=== PATIENT | female | born 1940 | race Caucasian/White ===

== ENCOUNTER → 2016-07-14 | Outpatient (CLI) | payer OTHER | LOC: MMPC 09:00 | PROVIDERS: ATTEND Obstetrics & Gynecology | DX: N95.2 Postmenopausal atrophic vaginitis (principal); N81.6 Rectocele; R10.2 Pelvic and perineal pain | CPT/HCPCS: 99204; G0463 ==

== ENCOUNTER → 2016-07-16 | Outpatient (CLI) | payer OTHER ==
--- NOTE | 2016-07-16 21:09 | DI ---
US PELVIC COMPLETE (NON OB),07/16/2016 1:58 PM: Clinical History: Pelvic pressure Previous Exam: None at this facility. Findings: Multiple transabdominal grayscale and color Doppler sonographic images are obtained through the pelvi s demonstrating a normal-appearing uterus measuring 7.2 x 1.6 x 3.3 cm. The endometrium was not well seen. The right ovary measured 1.8 x 1.2 x 2.0 cm and the left ovary measured 2.2 x 1.3 x 1.7 cm. Impression: Grossly normal pelvic sonogram.
== END ==
LOC: US 13:54
PROVIDERS: ATTEND Obstetrics & Gynecology
DX: R10.2 Pelvic and perineal pain (principal); N94.89 Other specified conditions associated with female genital organs and menstrual cycle
CPT/HCPCS: 76856

== ENCOUNTER → 2016-09-22 | Outpatient (CLI) | payer OTHER | LOC: MMPC 09:00 | DX: E11.9 Type 2 diabetes mellitus without complications (principal); N95.2 Postmenopausal atrophic vaginitis; E78.5 Hyperlipidemia, unspecified; E55.9 Vitamin D deficiency, unspecified; K21.9 Gastro-esophageal reflux disease without esophagitis | CPT/HCPCS: 99213; G0463 ==

== ENCOUNTER → 2017-01-14 | Outpatient (CLI) | payer OTHER | LOC: MMPC 11:11 | DX: E11.9 Type 2 diabetes mellitus without complications (principal); N95.2 Postmenopausal atrophic vaginitis; E78.5 Hyperlipidemia, unspecified; K21.9 Gastro-esophageal reflux disease without esophagitis; E55.9 Vitamin D deficiency, unspecified | CPT/HCPCS: 83037; 99213; G0463 ==

== ENCOUNTER → 2017-01-19 | Outpatient (CLI) | payer OTHER | LOC: MMPC 09:00 | PROVIDERS: ATTEND Obstetrics & Gynecology | DX: N95.2 Postmenopausal atrophic vaginitis (principal); N64.59 Other signs and symptoms in breast | CPT/HCPCS: 99213; G0463 ==

== ENCOUNTER → 2017-01-20 | Outpatient (CLI) | payer OTHER ==
--- NOTE | 2017-01-22 08:27 | DI ---
BILATERAL DIAGNOSTIC MAMMOGRAMS, 01/20/2017 2:43 PM: Clinical History: Inverted nipples. Prior Exam: 05/11/2012; 12/19/2013; 01/28/2016. Digital tomosynthesis scans of both breasts are obtained with the [employer] Digital Breast [facility] . C-View images are produced in the same projections as in the previous screening exam. CAD review is performed. Breast tissue density is rated as having scattered areas of fibroglandular breast tissue. In the righ t breast posteriorly in the upper inner quadrant approximately between the 2:00 to 3:00 position is a n ovoid nodular lesion that measures 4 x 5 x 8 mm. On the craniocaudal projection, the lesion has sha rply defined margins but it is less well-defined on the mediolateral oblique view. This is a new find ing since the previous exam. Breast ultrasound is recommended for further evaluation. No abnormal case cifications are noted. The skin contours and lower axillary regions are also normal. Both nipples are slightly inverted, more so on the left than the right side. However, there is no retroareolar pathol ogy to explain this finding. Follow Up: Breast ultrasound is recommended for further evaluation of the nodular lesion in the right upper inner quadrant. BIRADS: 0: Incomplete. Need additional imaging evaluation as above.] Ultrasound is recommended. Assessment: Incomplete: Need additional imaging evaluation.
== END ==
LOC: MAMMO 14:40
PROVIDERS: ATTEND Obstetrics & Gynecology
DX: N64.59 Other signs and symptoms in breast (principal)
CPT/HCPCS: G0204

== ENCOUNTER → 2017-01-28 | Outpatient (CLI) | payer OTHER ==
--- NOTE | 2017-01-28 10:23 | DI ---
RIGHT BREAST ULTRASOUND, 01/28/2017 9:45 AM: Clinical History: Abnormal diagnostic left mammogram. A new 4 x 5 x 8 mm well-circumscribed ovoid les ion was identified in the medial half of the breast. Ultrasound was recommended to better define this new finding. Scans are performed by the technologist and myself through all four quadrants of the right breast wit h the high resolution linear array probe. Color Doppler ultrasound was also performed. Scans reveal no solid or cystic mass. Specifically, no lesion is seen in the medial half of the right breast. Follow Up: Because this ovoid lesion seen on the mammogram was a new finding since the previous study from 01/28/2016, a six-month followup diagnostic right mammogram is recommended to monitor this area. BIRADS Category: 3: Probably benign finding. A 6 month followup diagnostic right mammogram is recomme nded. Assessment: Probably benign finding - short interval follow-up suggested.
== END ==
LOC: US 09:37
PROVIDERS: ATTEND Obstetrics & Gynecology
DX: R92.8 Other abnormal and inconclusive findings on diagnostic imaging of breast (principal)
CPT/HCPCS: 76641

== ENCOUNTER → 2017-02-25 | Outpatient (CLI) | payer OTHER | LOC: MMPC 09:00 | DX: S50.12XA Contusion of left forearm, initial encounter (principal); S50.812A Abrasion of left forearm, initial encounter; W22.8XXA Striking against or struck by other objects, initial encounter; Y93.H9 Activity, other involving exterior property and land maintenance, building and construction | CPT/HCPCS: 99212; G0463 ==